=== PATIENT | male | born 1965 | race Caucasian/White ===

== ENCOUNTER 2018-07-22 13:30 | Outpatient (CLI) | payer BC ==
--- NOTE | 2018-07-22 16:53 | CT ---
CT ABDOMEN AND PELVIS WITHOUT IV CONTRAST: HISTORY: A 53-year-old male with a history of post colonoscopy complications, pain in the right lower abdomen, with fever, following a colonoscopy on Friday. FINDINGS: Some mild linear stranding in the right base, possibly some mild subsegmental atelectasis. Approxima tely 2.2 cm in diameter low attenuation focus in the left lobe of the liver, not definitively charact erized on this study but with attenuation coefficients in the range of a cyst and corresponding to th e prior ultrasound finding of a cyst in the left lobe. The remainder of the liver, gallbladder, pancreas, spleen, and adrenal glands are unremarkable. No r enal calculus or acute obstruction. Scattered colonic diverticulosis. In the right mid abdomen, there is some nonspecific fat stranding in the mesentery, which is positioned adjacent to the cecum, as well as the right colon. The hepatic flexure is somewhat caudally located, and the cecum is more in the right upper quadrant. There is some wall thickening of the distal cecal apex. This could cer tainly represent edema from cautery of a polyp in this location. The appendix is poorly defined and extends into the region of this nonspecific fat stranding. In addition, there is a right colon diver ticulum, which is also involved in this region of mesenteric fat stranding. No evidence of bowel obs truction. No extraluminal gas or free intraperitoneal air. No significant free intraperitoneal flui d. IMPRESSION: 1. Some abnormal mesenteric fat stranding in the right mid lateral abdomen, somewhat between the rig ht colon and the anteriorly and superiorly located cecum, along with some thickening of the cecal ape x wall. In discussion with Dr. Jacobs, at approximately 3 p.m., he indicated that he had cauterized a polyp in the cecal apex, which would certainly account for all the above changes. Since a normal maral endix is not definitively seen and the region of the appendix is in this area of fat stranding, the p ossibility of acute appendicitis certainly cannot be excluded. In addition, the possibility of acute diverticulitis cannot be excluded. All these studies were discussed with Dr. Jacobs. A follow-up abd omen and pelvis CT scan with IV and oral contrast might help differentiate these three possibilities. 2. Small left lobe of liver cyst. 3. Left inguinal fat-containing hernia. 4. Scattered colonic diverticulosis. CODE CR POS: [facility]
== END 2018-07-22 13:31 | disposition home or self-care (01) ==
LOC: SCSCT 13:30
PROVIDERS: ATTEND Internal Medicine
DX: K91.89 Other postprocedural complications and disorders of digestive system (principal); R10.31 Right lower quadrant pain; R50.9 Fever, unspecified; K76.89 Other specified diseases of liver; K40.90 Unilateral inguinal hernia, without obstruction or gangrene, not specified as recurrent; K57.30 Diverticulosis of large intestine without perforation or abscess without bleeding
CPT/HCPCS: 74176